=== PATIENT | female | born 1965 | race Caucasian/White ===

== ENCOUNTER 2018-06-04 07:00 | Emergency (ER) | payer OTHER, BC ==
[~2018-06-04] VITALS: Ht 165.1 cm; Wt 95.2 kg
[~2018-06-04 07:00] MED LIST: ALPR.25 PO; ATEN50; CIPR500 PO; HYDACE5 PO; HYDR.5TC TOP; KETO10 PO; LEVFLO500 PO; MONT10T PO; ONDA4ODT MM; PHENA200 PO; QVAR7.3 G1 IH; RXHYDACE PO; RXPHEN200 PO; SERT100; SULTRIDS PO; ZOLP10; ZOLP5 PO
[2018-06-04] MEDS ORDERED: Norco 5-325 Ta1 EACH PO (07:56)
== END 2018-06-04 08:18 | disposition home or self-care (01) ==
LOC: ER 07:00
DX: M25.511 Pain in right shoulder (principal); Z79.899 Other long term (current) drug therapy; I10 Essential (primary) hypertension; E11.9 Type 2 diabetes mellitus without complications; F32.9 Major depressive disorder, single episode, unspecified; J45.909 Unspecified asthma, uncomplicated
CPT/HCPCS: 73030; 90471; 90714; 96372; 99283-25; J1885

== ENCOUNTER 2018-06-21 13:22 | Day surgery (SDC) | payer BC ==
[~2018-06-21] VITALS: Ht 165.1 cm; Wt 97.0 kg
[~2018-06-21 13:22] MED LIST changes: +Ambien10 MG PO; +Ferrous Sulfat325 M2 PO; +Norco 5-325 Ta1 EACH PO
--- NOTE | 2018-06-21 14:16 | NUR ---
06/21/18 1416 Sweta Ga SIMETHECONE USED DURING PROCEDURE.
== END 2018-06-21 14:48 | disposition home or self-care (01) ==
LOC: ORSCSDS 13:22
PROVIDERS: Internal Medicine Gastroenterology
PROC: 0DJD8ZZ Inspection of Lower Intestinal Tract, Via Natural or Artificial Opening Endoscopic (ICD-10-PCS; principal; 2018-06-21 14:30)
DX: Z12.11 Encounter for screening for malignant neoplasm of colon (principal); K57.30 Diverticulosis of large intestine without perforation or abscess without bleeding; K64.8 Other hemorrhoids; Z98.84 Bariatric surgery status; E11.9 Type 2 diabetes mellitus without complications; J45.909 Unspecified asthma, uncomplicated; I10 Essential (primary) hypertension; G47.33 Obstructive sleep apnea (adult) (pediatric); Z79.899 Other long term (current) drug therapy
CPT/HCPCS: 82947; J2704; J7120

== ENCOUNTER → 2018-10-19 | Outpatient (CLI) | payer BC ==
[2018-10-21 16:07] LABS: HPV 16 Negative (Negative); HPV 18 Negative (Negative); HPV OTHER HR TYPES Negative (Negative)
== END | disposition home or self-care (01) ==
LOC: LAB 16:15 → LAB SHORT 16:15
PROVIDERS: Nurse Practitioner Family
DX: Z01.419 Encounter for gynecological examination (general) (routine) without abnormal findings (principal)
CPT/HCPCS: 87624; G0145

== ENCOUNTER 2020-01-17 11:05 | Day surgery (SDC) | payer BC ==
[~2020-01-17] VITALS: Ht 165.1 cm; Wt 116.6 kg
[~2020-01-17 11:05] MED LIST changes: +ESZO2 PO
[2020-01-17] MEDS ORDERED: PSEU120ER PO (11:50)
--- NOTE | 2020-01-17 12:27 | NUR ---
01/17/20 1227 IVONNE REYES [facility]MB[facility] PERFORMED BY [facility].RDS
--- NOTE | 2020-01-17 13:05 | NUR ---
01/17/20 1305 Shadia Oviedo DEFICIT OF 200CC OF [facility]. NOTIFIED
== END 2020-01-17 13:47 | disposition home or self-care (01) ==
LOC: ORSCSDS 11:05
PROVIDERS: Obstetrics & Gynecology
PROC: 0UDB8ZX Extraction of Endometrium, Via Natural or Artificial Opening Endoscopic, Diagnostic (ICD-10-PCS; principal; 2020-01-17 12:30)
DX: N95.0 Postmenopausal bleeding (principal); N84.0 Polyp of corpus uteri; D50.9 Iron deficiency anemia, unspecified; G47.33 Obstructive sleep apnea (adult) (pediatric); E11.9 Type 2 diabetes mellitus without complications; J45.909 Unspecified asthma, uncomplicated; E66.01 Morbid (severe) obesity due to excess calories; Z68.41 Body mass index [BMI] 40.0-44.9, adult; Z79.899 Other long term (current) drug therapy; F41.8 Other specified anxiety disorders
CPT/HCPCS: 82947; 88305; J1100; J1885; J2250; J2405; J2704; J3010

== ENCOUNTER 2020-12-19 09:10 | Emergency (ER) | payer BC ==
[~2020-12-19] VITALS: Ht 154.9 cm; Wt 108.9 kg
[~2020-12-19 09:10] MED LIST changes: +PSEU120ER PO
== END 2020-12-19 10:58 | disposition home or self-care (01) ==
LOC: ER 09:10
DX: S80.12XA Contusion of left lower leg, initial encounter (principal); I10 Essential (primary) hypertension; E11.9 Type 2 diabetes mellitus without complications; J45.909 Unspecified asthma, uncomplicated; Z88.8 Allergy status to other drugs, medicaments and biological substances; Z91.048 Other nonmedicinal substance allergy status; Z79.899 Other long term (current) drug therapy; X58.XXXA Exposure to other specified factors, initial encounter
CPT/HCPCS: 73590; 93971; 99284-25

== ENCOUNTER → 2021-01-10 | Outpatient (CLI) | payer BC ==
[2021-01-10 17:00] LABS: BASOPHILS ABSOLUTE AUTO 0.03 K/mm3 (0.00-0.23); BASOPHILS PERCENT AUTO 1 % (0-2); EOSINOPHILS ABSOLUTE AUTO 0.09 K/mm3 (0.00-0.68); EOSINOPHILS PERCENT AUTO 2 % (0-6); Hematocrit 42.7 % (33.0-51.0); Hemoglobin 13.9 g/dL (11.5-16.0); IMMATURE GRAN ABSOLUTE AUTO 0.03 K/mm3 (0.00-0.10); IMMATURE GRAN PERCENT AUTO 1 % (0-1); LYMPHOCYTES ABSOLUTE AUTO 1.29 K/mm3 (0.84-5.20); LYMPHOCYTES PERCENT AUTO 21 % (21-46); MONOCYTES ABSOLUTE AUTO 0.29 K/mm3 (0.16-1.47); MONOCYTES PERCENT AUTO 5 % (4-13); Mean Corpuscular HGB 29.6 pg (26.0-34.0); Mean Corpuscular HGB Conc 32.6 g/dL (31.5-36.5); Mean Corpuscular Volume 91 fL (80-100); Mean Platelet Volume 9.8 fL (9.1-12.4); NEUTROPHILS ABSOLUTE AUTO 4.37 K/mm3 (1.96-9.15); NEUTROPHILS PERCENT AUTO 72 % (41-73); Platelet Count 228 K/mm3 (150-400); RDW Coefficient Variation 13.4 % (11.7-14.2); RDW Standard Deviation 44.6 fL (35.1-46.3); Red Blood Cell Count 4.69 M/mm3 (3.80-5.20)
[2021-01-10 17:16] LABS: Alanine Aminotransfer (ALT/SGP 25 U/L (12-78); Albumin, Blood 3.8 g/dL (3.4-5.0); Alk Phos 101 U/L (40-126); Anion Gap 9 mmol/L (6-16); Aspartate Aminotrans (AST/SGOT 18 U/L (12-37); Bilirubin, Total 0.4 mg/dL (0.1-1.0); Blood Urea Nitrogen 16 mg/dL (8-24); Bun/Creatinine Ratio 17.4 (12.0-20.0); CO2, Blood 28 mmol/L (21-32); Calcium, Blood 9.2 mg/dL (8.5-10.1); Chloride, Blood 105 mmol/L (98-108); Creatinine, Blood 0.92 mg/dL (0.40-1.00); Globulin, Blood 3.9 g/dL (2.2-4.0); Glomerular Filtration Rate >60 (60-); Glucose, Blood 87 mg/dL (70-99); Potassium, Blood 3.9 mmol/L (3.5-5.5); Sodium, Blood 142 mmol/L (136-145); Total Protein, Blood 7.7 g/dL (6.4-8.2)
== END | disposition home or self-care (01) ==
LOC: LAB SHORT 16:52 → LAB 16:52
PROVIDERS: Chiropractor
DX: I48.0 Paroxysmal atrial fibrillation (principal)
CPT/HCPCS: 80053; 84443; 84484; 85025; 85379